=== PATIENT | female | born 1935 | race Two or more races ===

== ENCOUNTER 2022-12-25 16:01 | Inpatient (IN) | payer OTHER ==
[~2022-12-25] VITALS: Ht 157.5 cm; Wt 72.6 kg
--- NOTE | 2022-12-25 16:07 | NUR ---
SE LLAMA PACIENTE Y NO RESPONDE
[2022-12-25] MEDS ORDERED: CHILDREN'S ASPI81 MG PO (16:15)
[2022-12-25] MEDS ORDERED: SYNTHROID50 MCG PO (16:15)
[2022-12-25] MEDS ORDERED: NEURONTIN300 MG PO (16:16)
[2022-12-25] MEDS ORDERED: FOLIC ACID0.8 M1 PO (16:17)
--- NOTE | 2022-12-25 16:19 | NUR ---
PTE ALERTA,ESTABLE Y CONFUSA.ACOM[place]NA[place] DEL FAMILIAR CUAL REFIERE QUE ESTA TIENE INFECCION DE ORINA Y ESTA CONSTIPADA.
--- NOTE | 2022-12-25 17:12 | NUR ---
EVALUA PTE. SE ORIENTA A FAMILIAR SOBRE [place] MEDICO, REFIERE ENTENDER. SE REALIZAN MUESTRAS DE LABORATORIO BAJO MEDIDAS ASEPTICAS. SE ADMINISTRA IV'S Y MEDICAMENTO CONCEPCION ORDEN MEDICA. SE COORDINA CT Y COLIN X. PTE MANEJADA POR .
[2022-12-25 17:26] LABS: ABG PH 7.447 (7.35-7.45); ABG PO2 67.7 mmHg (80-100); BASE EXCESS 2.3 mmol/l; BICARBONATE 26.3 mmol/l (23-25); SaO2 94.2 %; Tco2 27.5 mmol/l
[2022-12-25 17:36] LABS: HEMATOCRIT 36.1 % (36.0-45.00); HEMOGLOBIN 11.7 g/dL (12.0-15.00); MEAN CELL VOLUME 97.9 fL (80.00-100.00); MEAN CORPUSCULAR HEMOGLOBIN 31.6 pg (27.00-32.0); MEAN CORPUSCULAR HGB CONC 32.3 g/dl (32.0-36.0); PLATELET COUNT 168 K/uL (150-450); RED BLOOD COUNT 3.68 M/uL (4.00-6.00); RED CELL DISTRIBUTION WIDTH 13.8 % (11.5-14.5)
[2022-12-25 17:57] LABS: INR 1.09; PARTIAL THROMBOPLASTIN TIME 22.8 SECONDS (22.0-34.0); PROTHROMBIN TIME 11.4 SECONDS (9.0-11.5)
[2022-12-25 18:03] LABS: ALBUMIN 3.1 gm/dL (3.4-5.0); BILIRUBIN TOTAL 0.69 mg/dL (0.3-1.2); CALCIUM 8.5 mg/dL (8.5-10.1); CREATININE SERUM 0.81 mg/dL (0.55-1.02); GFR 66.58; GLOBULINA 3.8 G/DL (2.4-3.5); POTASSIUM 3.19 mEq/L (3.5-5.1); TOTAL PROTEIN 6.9 gm/dL (6.4-8.2)
[2022-12-25 18:35] LABS: URINE APPEARANCE Clear; URINE BILIRRUBIN Negative (NEGATIVE); URINE BLOOD Negative; URINE COLOR Yellow; URINE GLUCOSE Negative (NEGATIVE); URINE LEUKOCYTE Negative; URINE NITRATE Negative; URINE UROBILINOGEN 0.2 E.U./dl
[2022-12-25 18:37] LABS: URINE BACTERIA 18.8 uL (0.0-1933); URINE EPITHELIAL CELLS 7.5 uL (0.0-38.8); URINE RBC 31.4 uL (0.0-20.8); URINE WBC 13.4 uL (0.0-23.2)
[2022-12-25 18:42] LABS: URINE PROTEIN 100 (NEGATIVE)
[2022-12-25 19:00] LABS: allen test SATISFACTORY; o2 21 %; puncture site RADIAL RIGHT
[2022-12-25 23:53] LABS: AMYLASE 41 U/L (25-115)
[2022-12-25 23:57] LABS: PHOSPHOKINASE CREATININE 1003 U/L (26-192)
[2022-12-26 01:54] LABS: ABG PH 7.473 (7.35-7.45); ABG PO2 118.4 mmHg (80-100); ABG pCO2 35.8 mmHg (35-45); BASE EXCESS 2.3 mmol/l; BICARBONATE 26.6 mmol/l (23-25); SaO2 98.9 %; Tco2 26.7 mmol/l
[2022-12-26 01:55] LABS: allen test SATISFACTORY; o2 21 %; puncture site RADIAL RIGHT
[2022-12-27 02:56] LABS: HEMATOCRIT 36.3 % (36.0-45.00); HEMOGLOBIN 11.7 g/dL (12.0-15.00); MEAN CELL VOLUME 98.2 fL (80.00-100.00); MEAN CORPUSCULAR HEMOGLOBIN 31.5 pg (27.00-32.0); MEAN CORPUSCULAR HGB CONC 32.1 g/dl (32.0-36.0); PLATELET COUNT 165 K/uL (150-450); RED CELL DISTRIBUTION WIDTH 13.7 % (11.5-14.5)
[2022-12-27 03:01] LABS: PH,URINE 5.5 (5.0-8.0); URINE APPEARANCE Cloudy; URINE BILIRRUBIN Negative (NEGATIVE); URINE BLOOD Small; URINE COLOR Dark Yellow; URINE GLUCOSE Negative (NEGATIVE); URINE LEUKOCYTE Trace; URINE NITRATE Negative
[2022-12-27 03:06] LABS: URINE BACTERIA 124.7 uL (0.0-1933); URINE EPITHELIAL CELLS 59.8 uL (0.0-38.8); URINE RBC 35.2 uL (0.0-20.8); URINE WBC 122.1 uL (0.0-23.2)
[2022-12-27 03:12] LABS: URINE PROTEIN 100 (NEGATIVE)
[2022-12-27 03:14] LABS: URINE MUCUS HEAVY
[2022-12-27 03:34] LABS: ALBUMIN 3.1 gm/dL (3.4-5.0); BILIRUBIN TOTAL 0.54 mg/dL (0.3-1.2); CALCIUM 8.7 mg/dL (8.5-10.1); CREATININE SERUM 0.69 mg/dL (0.55-1.02); GFR 80.11; GLOBULINA 3.1 G/DL (2.4-3.5); MAGNESIUM 2.5 mg/dL (1.8-2.4); PHOSPHOROUS 2.9 mg/dL (2.5-4.9); POTASSIUM 3.45 mEq/L (3.5-5.1); TOTAL PROTEIN 6.2 gm/dL (6.4-8.2)
[2022-12-27 04:07] LABS: C-REACTIVE PROTEIN 8.68 MG/DL (0.00-0.29); FERRITIN 309.5 NG/ML (8-252)
[2022-12-27 08:56] LABS: PROCALCITONIN 1.69 ng/ml (0.020-0.080)
[2022-12-27 09:43] LABS: CORTISOL 12.4 ug/dl
[2022-12-29 09:09] LABS: ALBUMIN 2.9 gm/dL (3.4-5.0); CALCIUM 8.9 mg/dL (8.5-10.1); CREATININE SERUM 0.56 mg/dL (0.55-1.02); GFR 101.93; MAGNESIUM 2.5 mg/dL (1.8-2.4); PHOSPHOROUS 2.8 mg/dL (2.5-4.9); POTASSIUM 3.33 mEq/L (3.5-5.1)
[2022-12-29 09:15] LABS: FERRITIN 375.8 NG/ML (8-252)
[2022-12-31 08:08] LABS: HEMATOCRIT 34.2 % (36.0-45.00); HEMOGLOBIN 11.5 g/dL (12.0-15.00); MEAN CELL VOLUME 95.8 fL (80.00-100.00); MEAN CORPUSCULAR HEMOGLOBIN 32.1 pg (27.00-32.0); MEAN CORPUSCULAR HGB CONC 33.6 g/dl (32.0-36.0); PLATELET COUNT 248 K/uL (150-450); RED BLOOD COUNT 3.57 M/uL (4.00-6.00); RED CELL DISTRIBUTION WIDTH 13.5 % (11.5-14.5)
[2022-12-31 08:51] LABS: ALBUMIN 2.5 gm/dL (3.4-5.0); BILIRUBIN TOTAL 0.37 mg/dL (0.3-1.2); C-REACTIVE PROTEIN 10.6 MG/DL (0.00-0.29); CALCIUM 8.9 mg/dL (8.5-10.1); CREATININE SERUM 0.56 mg/dL (0.55-1.02); FERRITIN 355.8 NG/ML (8-252); GFR 101.93; GLOBULINA 3.3 G/DL (2.4-3.5); MAGNESIUM 2.3 mg/dL (1.8-2.4); POTASSIUM 3.65 mEq/L (3.5-5.1); TOTAL PROTEIN 5.8 gm/dL (6.4-8.2)
[2023-01-01] MEDS ORDERED: ATENOLOL25 MG PO (18:06)
[2023-01-01] MEDS ORDERED: ATENOLOL50 MG PO (18:07)
[2023-01-01] MEDS ORDERED: LIPITOR40 M1 PO (18:07)
[2023-01-01] MEDS ORDERED: FUROSEMIDE20 MG PO (18:09)
[2023-01-01] MEDS ORDERED: FOLIC ACID0.8 M1 PO (18:17)
== END 2023-01-01 21:05 | disposition home or self-care (01) | DRG 871 ==
LOC: ER 16:01 → SEC-K 21:55 → MEDJ 21:55 → SEC-K 12-27 00:10 → MEDJ 12-27 11:21
PROVIDERS: General Practice; Internal Medicine Infectious Disease; Nurse Practitioner Family; ADMIT Internal Medicine; ATTEND Internal Medicine
PROC: BW21ZZZ Computerized Tomography (CT Scan) of Abdomen and Pelvis (ICD-10-PCS; principal; 2022-12-25)
PROC: BW28ZZZ Computerized Tomography (CT Scan) of Head (ICD-10-PCS; 2022-12-25)
PROC: BW38ZZZ Magnetic Resonance Imaging (MRI) of Head (ICD-10-PCS; 2022-12-25)
PROC: 4A12X4Z Monitoring of Cardiac Electrical Activity, External Approach (ICD-10-PCS; 2022-12-27)
PROC: B24BYZZ Ultrasonography of Heart with Aorta using Other Contrast (ICD-10-PCS; 2022-12-28)
DX: A41.9 Sepsis, unspecified organism (principal); I21.4 Non-ST elevation (NSTEMI) myocardial infarction; N39.0 Urinary tract infection, site not specified; G30.9 Alzheimer's disease, unspecified; F02.80 Dementia in other diseases classified elsewhere, unspecified severity, without behavioral disturbance, psychotic disturbance, mood disturbance, and anxiety; F01.50 Vascular dementia, unspecified severity, without behavioral disturbance, psychotic disturbance, mood disturbance, and anxiety; R79.89 Other specified abnormal findings of blood chemistry; I10 Essential (primary) hypertension; R41.0 Disorientation, unspecified; Z74.01 Bed confinement status
CPT/HCPCS: 70544